=== PATIENT | male | born 1990 | race Caucasian/White ===

== ENCOUNTER 2016-09-05 12:01 | Emergency (ER) | payer OTHER ==
[~2016-09-05] VITALS: Ht 177.8 cm; Wt 108.9 kg
[~2016-09-05 12:01] MED LIST: CIPRO500 MG PO; CORTISPORIN SUS10 ML OT; CYCLOBENZAPRINE10 MG PO; Motrin,Rufen800 MG PO; NAPROSYN500 MG PO; PREDNICOT20 MG PO; TESSALON PERLE100 M1 PO; ZITHROMAX Z PA250 MG PO
[2016-09-05] MEDS ORDERED: CORTISPORIN SUS10 ML OT (12:20)
== END 2016-09-05 12:27 | disposition home or self-care (01) ==
LOC: ED 12:01
DX: H60.501 Unspecified acute noninfective otitis externa, right ear (principal); R03.0 Elevated blood-pressure reading, without diagnosis of hypertension

== ENCOUNTER 2016-11-29 09:36 | Emergency (ER) | payer OTHER ==
[~2016-11-29] VITALS: Ht 175.2 cm; Wt 106.6 kg
[2016-11-29] MEDS ORDERED: NAPROSYN500 MG PO (10:10)
[2016-11-29] MEDS ORDERED: MEDROL DOSEPAK4 MG PO (10:10)
[2016-11-29] MEDS ORDERED: CYCLOBENZAPRINE10 MG PO (10:10)
== END 2016-11-29 10:23 | disposition home or self-care (01) ==
LOC: ED 09:36
DX: M54.32 Sciatica, left side (principal)

== ENCOUNTER 2016-12-04 20:19 | Emergency (ER) | payer OTHER ==
[~2016-12-04] VITALS: Wt 106.6 kg
[~2016-12-04 20:19] MED LIST changes: +MEDROL DOSEPAK4 MG PO
[2016-12-04] MEDS ORDERED: ANAPROX DS550 MG PO (20:44)
[2016-12-04] MEDS ORDERED: CLINDAMYCIN HC300 MG PO (20:44)
== END 2016-12-04 20:51 | disposition home or self-care (01) ==
LOC: ED 20:19
DX: K08.89 Other specified disorders of teeth and supporting structures (principal)

== ENCOUNTER 2017-10-13 16:12 | Emergency (ER) | payer SELFPAY ==
[~2017-10-13] VITALS: Ht 175.2 cm; Wt 108.9 kg
[~2017-10-13 16:12] MED LIST changes: +ANAPROX DS550 MG PO; +CLINDAMYCIN HC300 MG PO
[2017-10-13 17:14] LABS: BASO % 0.2 % (0.0-1.0); EOS # 0.1 10*3/uL (0.0-0.4); HEMATOCRIT 51.1 % (42.0-52.0); HEMOGLOBIN 17.3 g/dl (14.0-18.0); LYMPH % 7.2 % (27.0-41.0); MEAN CELL VOLUME 83.5 fl (80.0-94.0); MEAN CORPUSCULAR HGB 28.3 pg (27.0-31.0); MEAN CORPUSCULAR HGB CONC 33.9 g/dl (33.0-37.0); MEAN PLATELET VOLUME 9.6 fl (9.6-12.3); MONO % 7.4 % (3.0-9.0); NEUT # 11.2 10*3/uL (2.3-7.9); NEUT % 83.9 % (47.0-73.0); PLATELET COUNT AUTOMATED 296 10*3/uL (130-400); RED BLOOD COUNT 6.12 10*6/uL (4.50-5.90); RED CELL DISTRI WIDTH 13.4 % (0-14.5); WHITE BLOOD COUNT 13.3 10*3/uL (4.8-10.8)
[2017-10-13 17:34] LABS: ALBUMIN 4.3 gm/dl (3.1-4.5); ALKALINE PHOSPHATASE 99 U/L (45-117); BUN 16 mg/dl (7-24); CHLORIDE 105 mmol/L (98-107); CREATININE 1.17 mg/dL (0.70-1.30); POTASSIUM 4.1 mmol/L (3.5-5.1); SGOT/AST 20 IU/L (3-35); SGPT/ALT 40 U/L (12-78); SODIUM 139 mmol/L (136-145); TOTAL PROTEIN 8.8 gm/dL (6.4-8.2)
[2017-10-13] MEDS ORDERED: TAMIFLU 75MG CA75 MG PO (19:28)
[2017-10-13] MEDS ORDERED: ZOFRAN ODT4 MG SL (19:28)
== END 2017-10-13 19:35 | disposition home or self-care (01) ==
LOC: ED 16:12
PROVIDERS: Physician Assistant
DX: B34.9 Viral infection, unspecified (principal)

== ENCOUNTER 2020-03-10 12:43 | Emergency (ER) | payer SELFPAY ==
[~2020-03-10] VITALS: Ht 175.2 cm; Wt 108.9 kg
[~2020-03-10 12:43] MED LIST changes: +TAMIFLU 75MG CA75 MG PO; +ZOFRAN ODT4 MG SL
[2020-03-10] MEDS ORDERED: CEPHALEXIN500 M1 PO (14:25)
[2020-03-10] MEDS ORDERED: SEPTDS PO (14:25)
== END 2020-03-10 14:26 | disposition home or self-care (01) ==
LOC: ED 12:43
DX: S40.862A Insect bite (nonvenomous) of left upper arm, initial encounter (principal); L03.114 Cellulitis of left upper limb; Z79.899 Other long term (current) drug therapy; W57.XXXA Bitten or stung by nonvenomous insect and other nonvenomous arthropods, initial encounter; Y93.89 Activity, other specified; Y92.89 Other specified places as the place of occurrence of the external cause; Y99.8 Other external cause status

== ENCOUNTER 2020-04-08 19:27 | Emergency (ER) | payer SELFPAY ==
[~2020-04-08] VITALS: Ht 175.2 cm; Wt 113.4 kg
[~2020-04-08 19:27] MED LIST changes: +CEPHALEXIN500 M1 PO; +SEPTDS PO
[2020-04-08 20:28] LABS: BASO % 0.5 % (0.0-1.0); EOS # 0.1 10*3/uL (0.0-0.4); EOS % 1.5 % (1.0-4.0); HEMATOCRIT 45.8 % (42.0-52.0); LYMPH # 1.7 10*3/uL (1.3-4.4); MEAN CELL VOLUME 81.6 fl (80.0-94.0); MEAN CORPUSCULAR HGB 25.8 pg (27.0-31.0); MEAN CORPUSCULAR HGB CONC 31.7 g/dl (33.0-37.0); MEAN PLATELET VOLUME 10.1 fl (9.6-12.3); MONO # 0.6 10*3/uL (0.1-1.0); MONO % 7.7 % (3.0-9.0); NEUT # 5.3 10*3/uL (2.3-7.9); PLATELET COUNT AUTOMATED 287 10*3/uL (130-400); RED BLOOD COUNT 5.61 10*6/uL (4.50-5.90); RED CELL DISTRI WIDTH 14.2 % (0-14.5); WHITE BLOOD COUNT 7.8 10*3/uL (4.8-10.8)
[2020-04-08 20:44] LABS: ALBUMIN 3.9 gm/dl (3.1-4.5); ALKALINE PHOSPHATASE 69 U/L (45-117); BUN 23 mg/dl (7-24); CHLORIDE 105 mmol/L (98-107); CREATININE 1.58 mg/dL (0.70-1.30); POTASSIUM 3.6 mmol/L (3.5-5.1); SGOT/AST 19 IU/L (3-35); SGPT/ALT 38 U/L (12-78); SODIUM 138 mmol/L (136-145); TOTAL PROTEIN 7.9 gm/dL (6.4-8.2)
== END 2020-04-08 23:22 | disposition home or self-care (01) ==
LOC: ED 19:27
PROVIDERS: Nurse Practitioner Family
DX: R25.2 Cramp and spasm (principal); Z79.899 Other long term (current) drug therapy

== ENCOUNTER 2020-04-12 18:37 | Emergency (ER) | payer SELFPAY ==
[~2020-04-12] VITALS: Wt 113.4 kg
[2020-04-12 19:39] LABS: BASO # 0.1 10*3/uL (0.0-0.1); BASO % 0.7 % (0.0-1.0); EOS # 0.2 10*3/uL (0.0-0.4); EOS % 3.1 % (1.0-4.0); HEMATOCRIT 44.2 % (42.0-52.0); LYMPH % 28.9 % (27.0-41.0); MEAN CELL VOLUME 81.4 fl (80.0-94.0); MEAN CORPUSCULAR HGB 26.2 pg (27.0-31.0); MEAN CORPUSCULAR HGB CONC 32.1 g/dl (33.0-37.0); MEAN PLATELET VOLUME 10.3 fl (9.6-12.3); MONO # 0.7 10*3/uL (0.1-1.0); MONO % 10.4 % (3.0-9.0); NEUT # 3.9 10*3/uL (2.3-7.9); NEUT % 56.8 % (47.0-73.0); PLATELET COUNT AUTOMATED 284 10*3/uL (130-400); RED BLOOD COUNT 5.43 10*6/uL (4.50-5.90); RED CELL DISTRI WIDTH 14.3 % (0-14.5); WHITE BLOOD COUNT 6.8 10*3/uL (4.8-10.8)
[2020-04-12 19:52] LABS: BUN 15 mg/dl (7-24); CHLORIDE 103 mmol/L (98-107); CREATININE 1.32 mg/dL (0.70-1.30); POTASSIUM 3.8 mmol/L (3.5-5.1); SODIUM 139 mmol/L (136-145)
== END 2020-04-12 21:51 | disposition home or self-care (01) ==
LOC: ED 18:37
PROVIDERS: Internal Medicine
DX: S86.912A Strain of unspecified muscle(s) and tendon(s) at lower leg level, left leg, initial encounter (principal); X58.XXXA Exposure to other specified factors, initial encounter; Y93.89 Activity, other specified; Y92.89 Other specified places as the place of occurrence of the external cause; Y99.8 Other external cause status

== ENCOUNTER 2020-10-17 08:21 | Emergency (ER) | payer SELFPAY ==
[~2020-10-17] VITALS: Ht 175.2 cm; Wt 108.4 kg
[2020-10-17] MEDS ORDERED: Motrin,Rufen800 MG PO (11:21)
== END 2020-10-17 12:15 | disposition home or self-care (01) ==
LOC: ED 08:21
DX: S30.1XXA Contusion of abdominal wall, initial encounter (principal); R07.81 Pleurodynia; R10.12 Left upper quadrant pain; Z79.2 Long term (current) use of antibiotics; V86.59XA Driver of other special all-terrain or other off-road motor vehicle injured in nontraffic accident, initial encounter; Y93.89 Activity, other specified; Y92.89 Other specified places as the place of occurrence of the external cause; Y99.8 Other external cause status

== ENCOUNTER 2021-05-18 20:58 | Emergency (ER) | payer SELFPAY | END 2021-05-18 23:30 | disposition left against medical advice (07) | LOC: ED 20:58 | DX: H92.09 Otalgia, unspecified ear (principal); Z53.21 Procedure and treatment not carried out due to patient leaving prior to being seen by health care provider ==

== ENCOUNTER 2022-01-03 21:47 | Emergency (ER) | payer SELFPAY ==
[2022-01-03] MEDS ORDERED: PREDNISONE50 MG PO (22:21)
== END 2022-01-03 22:37 | disposition home or self-care (01) ==
LOC: ED 21:47
DX: S83.92XA Sprain of unspecified site of left knee, initial encounter (principal); X50.1XXA Overexertion from prolonged static or awkward postures, initial encounter; Y93.89 Activity, other specified; Y92.89 Other specified places as the place of occurrence of the external cause; Y99.8 Other external cause status

== ENCOUNTER 2022-02-03 21:37 | Emergency (ER) | payer SELFPAY ==
[~2022-02-03] VITALS: Wt 113.4 kg
[~2022-02-03 21:37] MED LIST changes: +PREDNISONE50 MG PO
== END 2022-02-03 22:35 | disposition home or self-care (01) ==
LOC: ED 21:37
DX: H60.92 Unspecified otitis externa, left ear (principal)

== ENCOUNTER 2022-08-29 20:24 | Emergency (ER) | payer OTHER ==
[~2022-08-29] VITALS: Ht 175.2 cm; Wt 113.4 kg
[2022-08-30] MEDS ORDERED: PREDNISONE20 M1 PO (00:18)
== END 2022-08-30 01:24 | disposition home or self-care (01) ==
LOC: ED 20:24
DX: B34.9 Viral infection, unspecified (principal); Z20.822 Contact with and (suspected) exposure to COVID-19